=== PATIENT | female | born 1930 | race Caucasian/White ===

== ENCOUNTER 2018-07-20 15:35 | Emergency (ER) | payer MEDICARE, OTHER ==
[~2018-07-20] VITALS: Ht 149.9 cm; Wt 54.5 kg
[~2018-07-20 15:35] MED LIST changes: -NORCO 5-325 TA1 EACH PO
[2018-07-20] MEDS ORDERED: NORCO 5-325 TA1 EACH PO (18:41)
[2018-07-20 18:56] VITALS: BP 182/82
== END 2018-07-20 18:57 | disposition home or self-care (01) ==
LOC: M.ERS 15:35
DX: S52.572A Other intraarticular fracture of lower end of left radius, initial encounter for closed fracture (principal); F41.9 Anxiety disorder, unspecified; Z88.5 Allergy status to narcotic agent; W00.0XXA Fall on same level due to ice and snow, initial encounter; Y93.89 Activity, other specified; Y92.89 Other specified places as the place of occurrence of the external cause; Y99.8 Other external cause status

== ENCOUNTER → 2018-07-20 | Emergency (ER) | payer MEDICARE, OTHER ==
[~2018-07-20] VITALS: Ht 149.9 cm; Wt 54.4 kg
[~2018-07-20] MED LIST: HYDROCODON-ACE1 EAC7 PO; NEURONTIN 400M400 M2 PO; NORCO 5-325 TA1 EACH PO
[2018-07-20 22:40] VITALS: BP 154/51
== END ==
LOC: M.ERS 22:14
DX: M25.532 Pain in left wrist (principal); F41.9 Anxiety disorder, unspecified; G62.9 Polyneuropathy, unspecified; Z88.5 Allergy status to narcotic agent